=== PATIENT | female | born 1960 | race Two or more races ===

== ENCOUNTER 2018-09-19 16:10 | Emergency (ER) | payer BC ==
[~2018-09-19] VITALS: Ht 154.9 cm; Wt 86.4 kg
[2018-09-19 16:12] VITALS: BP 147/101
== END 2018-09-19 17:39 | disposition home or self-care (01) ==
LOC: ER 16:11
DX: M25.531 Pain in right wrist (principal); Z88.1 Allergy status to other antibiotic agents
CPT/HCPCS: 29125; 73110; 99284